=== PATIENT | female | born 1995 | race African-American/Black ===

== ENCOUNTER 2017-10-17 10:28 | Emergency (ER) | payer OTHER ==
[~2017-10-17] VITALS: Ht 162.6 cm; Wt 118.8 kg
[2017-10-17 10:32] VITALS: BP 147/60
--- NOTE | 2017-10-17 10:36 | NUR ---
Patient ambulated to bed 9. RN evaluating patient at bedside.
--- NOTE | 2017-10-17 10:37 | NUR ---
REPORT GIVEN TO WILLIE AG.
--- NOTE | 2017-10-17 10:52 | NUR ---
X RAY AT BEDSIDE.
--- NOTE | 2017-10-17 12:24 | NUR ---
PT. RESTING COMFORTABLY IN BED, RR EVEN AND UNLABORED. BED IN LOWEST POSITION WILL CONTINUE TO MONITOR.
[2017-10-17 12:48] VITALS: BP 146/62
--- NOTE | 2017-10-17 12:48 | NUR ---
Patient discharged with v/s stable. Written and verbal after care instructions given and explained. Patient alert, oriented and verbalized understanding of instructions. Ambulatory with steady gait. All questions addressed prior to discharge. ID band removed. Patient advised to follow up with PMD. Rx of IBUPROFEN 600 MG given. Patient educated on indication of medication including possible reaction and side effects. Opportunity to ask questions provided and answered.
== END 2017-10-17 12:48 | disposition home or self-care (01) ==
LOC: MED 10:28
DX: S63.613A Unspecified sprain of left middle finger, initial encounter (principal); W21.09XA Struck by other hit or thrown ball, initial encounter; Y93.89 Activity, other specified; Y92.89 Other specified places as the place of occurrence of the external cause; Y99.8 Other external cause status
CPT/HCPCS: 73140; 99284

== ENCOUNTER 2018-01-12 11:52 | Emergency (ER) | payer OTHER ==
[~2018-01-12] VITALS: Ht 165.1 cm; Wt 109.3 kg
[2018-01-12 12:03] VITALS: BP 127/85
--- NOTE | 2018-01-12 12:15 | NUR ---
PATIENT PRESENTS TO ED WITH COMPLAINTS OF RASH. SKIN APPPEARS TO HAVE RED RAISED WELTS GENERALIED OVER BODY. DENIES N/V/D; SKIN IS PINK/WARM/DRY; AAOX4 WITH EVEN AND STEADY GAIT; LUNGS CLEAR BL; HR EVEN AND REGULAR; PT DENIES ANY FEVER, CP, SOB, OR COUGH AT THIS TIME; PATIENT STATES PAIN OF 0/10 AT THIS TIME; VSS; PATIENT POSITIONED FOR COMFORT; HOB ELEVATED; BEDRAILS UP X1; BED DOWN. ER MD MADE AWARE OF PT STATUS.
[2018-01-12] MEDS ORDERED: diphenhydrAMINE 50 MG CAP PO ONE (14:05)
[2018-01-12] MEDS ORDERED: predniSONE 20 MG TAB PO ONE (14:05)
[2018-01-12 14:55] VITALS: BP 127/85
--- NOTE | 2018-01-12 14:55 | NUR ---
Patient discharged with v/s stable. Written and verbal after care instructions given and explained. Patient alert, oriented and verbalized understanding of instructions. Ambulatory with steady gait. All questions addressed prior to discharge. ID band removed. Patient advised to follow up with PMD. Rx of PREDNISONE AND BENADRYL given. Patient educated on indication of medication including possible reaction and side effects. Opportunity to ask questions provided and answered.
== END 2018-01-12 14:55 | disposition home or self-care (01) ==
LOC: MED 11:52
DX: L50.9 Urticaria, unspecified (principal); E05.00 Thyrotoxicosis with diffuse goiter without thyrotoxic crisis or storm; I49.9 Cardiac arrhythmia, unspecified
CPT/HCPCS: 99283; J7512; Q0163